=== PATIENT | female | born 1950 | race Caucasian/White ===

== ENCOUNTER 2017-11-06 14:00 | Outpatient (RCR) | payer MEDICARE, OTHER, SELFPAY | END 2017-11-06 14:01 | disposition home or self-care (01) | LOC: OT 14:00 | PROVIDERS: Visit Provider Orthopaedic Surgery Adult Reconstructive Orthopaedic Surgery | DX: S52.502A Unspecified fracture of the lower end of left radius, initial encounter for closed fracture (principal); M79.642 Pain in left hand | CPT/HCPCS: 97110; 97140; 97166 ==

== ENCOUNTER → 2018-04-14 08:48 | Outpatient (POV) | payer MEDICARE, OTHER, SELFPAY | PROVIDERS: Visit Provider Dermatology | DX: Z00.00 Encounter for general adult medical examination without abnormal findings (principal) ==

== ENCOUNTER → 2020-10-17 10:37 | Outpatient (POV) | payer MEDICARE, OTHER, SELFPAY | PROVIDERS: Visit Provider Dermatology | DX: Z00.00 Encounter for general adult medical examination without abnormal findings (principal) ==

== ENCOUNTER 2024-02-17 10:41 | Emergency (ER) | payer MEDICARE, OTHER, SELFPAY ==
[2024-02-17 11:04] VITALS: BP 161/57; PULSE 72; RESP 18; TEMP 36.6; O2SAT 98; BMI 30.5
[2024-02-17 11:14] VITALS: BP 126/63
--- NOTE | 2024-02-17 11:14 | EXP.UTC ---
Discharge Plan Disposition Patient Disposition: Home, Self-Care Prescriptions Prescriptions: New nitrofurantoin monohyd/m-cryst [Macrobid] 100 mg capsule 100 mg PO BID 5 Days Qty: 10 0RF Rx Instructions: must administer with a meal/food No Action atorvastatin 10 MG tablet 10 mg PO DAILY levothyroxine [Synthroid] 100 MCG tablet 0.125 mcg PO DAILY propranolol-hydrochlorothiazid 1 EACH tablet 1 ea PO DAILY hydrocodone-acetaminophen 1 TAB tablet 1 each PO Q6H PRN (Reason: Moderate To Severe Pain) Qty: 6 0RF Rx Instructions: will cause drowsiness metformin 500 mg Tablet 500 mg PO DAILY hydrochlorothiazide 25 mg Tablet 25 mg PO DAILY spironolactone 50 mg Tablet 50 mg PO BID Referrals Follow up/Referrals: Sosa Hogue [Primary Care Provider] - See instructions Activity Restrictions/Add. Instructions Additional Instructions/Restrictions: Call your family doctor to establish care for this visit to the emergency department and schedule follow-up within 48 hours to ensure improvement. If you have any worsening of your condition or any other concerning signs or symptoms, return to the emergency department or your primary care doctor for further evaluation. Clinical Impressions Clinical Impression: Cystitis, Lightheadedness Print Language Print Language: Georgian Discharge ED Provider: Lane Heath [facility] HPI General Chief complaint: Recheck/Abnormal Lab/Rx Stated complaint: blood pressure 127/44 Mode of Arrival: Ambulatory Source of Information: Patient Time Seen by Provider: 02/17/24 11:14 Description of Symptoms (Recalled from Triage Doc. by RN): STATES BLOOD PRESSURE WAS 127/44 AT HOME, SHE FEELS LIGHTHEADED, OFF FEELING , STARTING TO GET BOO STATES BP IS USUALLY 120S/60S IN THE AM TOOK ALL MEDS THIS MORNING THEN STARTING FEELING BAD HEENT Symptoms (Recalled from RN notes): Yes Resp Symptoms (Recalled from RN notes): No Skin Symptoms (Recalled from RN notes): No MS Symptoms (Recalled from RN notes): No Functional Status (Recalled from RN notes): WNL History of Present Illness Provider Complaint: Patient states that she woke up this morning dizzy feeling and feeling off States that she took all her medication including her BP medications and started feeling dizzy and off balanced States that she checked her BP and it was 127/44 and felt like she was trying to get a headache, States that she has continued to feel off balanced and swimmy headed and just doesnt feel right so she called her PCP and they told her to come in Denies vision changes Related Data Home Medications ?Medication ?Instructions ?Recorded ?Confirmed atorvastatin 10 mg tablet 10 mg PO DAILY Hypertension 08/11/17 02/17/24 levothyroxine 100 mcg tablet 0.125 mcg PO DAILY THYROID 08/11/17 02/17/24 (Synthroid) propranolol 40 1 ea PO DAILY Hypertension 08/11/17 02/17/24 mg-hydrochlorothiazide 25 mg tablet hydrochlorothiazide 25 mg tablet 25 mg PO DAILY 02/17/24 02/17/24 metformin 500 mg tablet 500 mg PO DAILY 02/17/24 02/17/24 spironolactone 50 mg tablet 50 mg PO BID 02/17/24 02/17/24 Previous Rx's ?Medication ?Instructions ?Recorded hydrocodone 5 mg-acetaminophen 325 1 each PO Q6H PRN Moderate To 08/11/17 mg tablet Severe Pain #6 tabs nitrofurantoin 100 mg PO BID 5 days #10 caps 02/17/24 monohydrate/macrocrystals 100 mg capsule (Macrobid) Allergies Allergy/AdvReac Type Severity Reaction Status Date / Time naproxen Allergy Hypertensio Verified 02/17/24 11:40 n meloxicam AdvReac Other Verified 02/17/24 11:40 Worker's Comp Is this a Worker's Comp case?: No [facility] Disclaimer: The information contained in this section may have been updated after the patient was seen, as this information can be updated by other users. Medical History (Updated 02/17/24 @ 13:[address] MD) Tubal ligation evaluation Thyroid disease Diabetes Stroke Asthma Hyperlipemia Hypertension Surgical History (Updated 02/17/24 @ 11:08 by Arabella Stevens RN) Hx laparoscopic cholecystectomy Social History (Updated 02/17/24 @ 13:[address] MD) Smoking Status: Never smoker alcohol intake: never current occupational status: retired ROS Obtained: Yes All systems reviewed & no additional complaints except as documented and Yes Systems reviewed as appropriate & no additional complaints except as documented Constitutional Constitutional: Reports system reviewed and no additional complaints, except as documented, Reports as per HPI, Reports headache(s) (feels achy like she is going to get a headache just started) and Reports weakness Eyes Eyes: Reports system reviewed and no additional complaints, except as documented and Reports as per HPI ENT Ears, Nose, Mouth, and Throat: Reports system reviewed and no additional complaints, except as documented, Reports as per HPI, Reports disequilibrium, Reports dizziness and Reports headache(s) (feels achy like she is going to get a headache just started) Cardiovascular Cardiovascular: Reports system reviewed and no additional complaints, except as documented, Reports as per HPI, Denies chest pain, Reports lightheadedness and Denies syncope Respiratory Respiratory: Reports system reviewed and no additional complaints, except as documented and Reports as per HPI Gastrointestinal Gastrointestingal: Reports system reviewed and no additional complaints, except as documented and as per HPI Genitourinary Female Genitourinary: Reports system reviewed and no additional complaints, except as documented and Reports as per HPI Musculoskeletal Musculoskeletal: Reports system reviewed and no additional complaints, except as documented and Reports as per HPI Neurologic Neurologic: Reports system reviewed and no additional complaints, except as documented, Reports as per HPI, Denies abnormal speech, Denies behavioral changes, Denies confusion, Reports disequilibrium, Reports dizziness, Reports headache(s) (feels achy like she is going to get a headache just started), Denies syncope, Reports weakness and Reports other (reports feels foggy headed and feels off and off balance) Physical Exam General General appearance: alert and in no apparent distress Head Head exam: atraumatic and normocephalic Respiratory Respiratory exam: Present normal lung sounds bilaterally; Absent respiratory distress Cardiovascular Cardiovascular exam: Present regular rate, normal rhythm and normal heart sounds Neurological Exam Neurological exam: Present alert and oriented X3 Medical Decision Making Medical Records Screening: Per USPSTF and CDC recommendations, given the prevalence of disease in our region, it is our hospital?s policy to screen for HIV and viral Hepatitis for all patients aged 18 and over and those with ongoing risk factors. Kaushal Inquiry Pt receiving controlled substance: No Kaushal was queried for this patient: No Vital Signs: 02/17/24 11:04 Temperature 97.9 F Temperature Source Oral Pulse Rate [Left Brachial] 72 Respiratory Rate 18 Blood Pressure [Left Arm] 161/57 H Blood Pressure Mean [Left Arm] 91 02 Sat by Pulse Oximetry 98 Lab Data 02/17/24 11:15 02/17/24 11:15 Medical Decision Narrative: Patient almost fell several times walking to room, reports feels off balanced and foggy headed reports just dont feel right discussed with patient and due to hx and current complaints recommended transfer to the ED for further work up and evaluation and she agreed Called ED and patient was moved to the ED
[2024-02-17 11:18] LABS: POC Glucose,Bedside 101 (70-110)
[2024-02-17 11:27] VITALS: BP 156/68; PULSE 72; RESP 18; O2SAT 100; BMI 29.8
--- NOTE | 2024-02-17 11:31 | ECG_ITS ---
APPROVED REPORT Exam: Resting ECG HR:68 bpm ECG Measurements Heart Rate 68 AXES WV 205 P 68 QRSd 92 QRS 27 QT 375 T 57 QTc 393 Conclusion Sinus rhythm Previous septal infarct Electronically signed by : APOLINAR JERONIMO, 02/17/2024 14:15:09
--- NOTE | 2024-02-17 11:50 | HMH.EDGENADL ---
Discharge Plan Prescriptions Prescriptions: New nitrofurantoin monohyd/m-cryst [Macrobid] 100 mg capsule 100 mg PO BID 5 Days Qty: 10 0RF Rx Instructions: must administer with a meal/food No Action atorvastatin 10 MG tablet 10 mg PO DAILY levothyroxine [Synthroid] 100 MCG tablet 0.125 mcg PO DAILY propranolol-hydrochlorothiazid 1 EACH tablet 1 ea PO DAILY hydrocodone-acetaminophen 1 TAB tablet 1 each PO Q6H PRN (Reason: Moderate To Severe Pain) Qty: 6 0RF Rx Instructions: will cause drowsiness metformin 500 mg Tablet 500 mg PO DAILY hydrochlorothiazide 25 mg Tablet 25 mg PO DAILY spironolactone 50 mg Tablet 50 mg PO BID Referrals Follow up/Referrals: Sosa Hogue [Primary Care Provider] - See instructions Activity Restrictions/Add. Instructions Additional Instructions/Restrictions: Call your family doctor to establish care for this visit to the emergency department and schedule follow-up within 48 hours to ensure improvement. If you have any worsening of your condition or any other concerning signs or symptoms, return to the emergency department or your primary care doctor for further evaluation. Clinical Impressions Clinical Impression: Cystitis, Lightheadedness Print Language Print Language: Indonesian Discharge ED Provider: Lane Heath General Adult HPI General Chief complaint: Recheck/Abnormal Lab/Rx Stated complaint: blood pressure 127/44 Time Seen by Provider: 02/17/24 11:14 Mode of Arrival: Wheelchair Source of Information: Patient Limitations: No Limitations Description of Symptoms (Recalled from ER Triage Doc. by RN): pt states she woke up around 730 and felt lightheaded. She took her BP around 0900 and it was 127/44. Pt is concerned because her BP has never been that low. pt states she now feels like she has head fog. pt states the lightheadedness is worse with standing and movement. NIH 0. A&O X4. GCS 15 pt has a hx of TIA in 2002 (no deficits), HTN, DM and thyroid disease. History of Present Illness HPI narrative: Please note that above description of symptoms, in this electronic medical record under categorization of recalled from ER triage doctor by RN are reflective of an initial nursing assessment, however, is not reflective of my full history and physical exam that was personally taken and clarified. Consequentially, this preceding description of symptoms, which may include the patient's categorized chief complaint in the EMR, do not reflect my personal clinical impression, and the ultimate description of history of present illness and patient stated complaints should be deferred to this section of the note. Unless stated otherwise or congruent with this section of the note, additional signs, symptoms, or incongruence should be interpreted as inaccurate with my clinical impression. Related Data Home Medications ?Medication ?Instructions ?Recorded ?Confirmed atorvastatin 10 mg tablet 10 mg PO DAILY Hypertension 08/11/17 02/17/24 levothyroxine 100 mcg tablet 0.125 mcg PO DAILY THYROID 08/11/17 02/17/24 (Synthroid) propranolol 40 1 ea PO DAILY Hypertension 08/11/17 02/17/24 mg-hydrochlorothiazide 25 mg tablet hydrochlorothiazide 25 mg tablet 25 mg PO DAILY 02/17/24 02/17/24 metformin 500 mg tablet 500 mg PO DAILY 02/17/24 02/17/24 spironolactone 50 mg tablet 50 mg PO BID 02/17/24 02/17/24 Previous Rx's ?Medication ?Instructions ?Recorded hydrocodone 5 mg-acetaminophen 325 1 each PO Q6H PRN Moderate To 08/11/17 mg tablet Severe Pain #6 tabs nitrofurantoin 100 mg PO BID 5 days #10 caps 02/17/24 monohydrate/macrocrystals 100 mg capsule (Macrobid) Allergies Allergy/AdvReac Type Severity Reaction Status Date / Time naproxen Allergy Hypertensio Verified 02/17/24 11:40 n meloxicam AdvReac Other Verified 02/17/24 11:40 [facility] Disclaimer: The information contained in this section may have been updated after the patient was seen, as this information can be updated by other users. Medical History (Updated 02/17/24 @ 13:[address] MD) Tubal ligation evaluation Thyroid disease Diabetes Stroke Asthma Hyperlipemia Hypertension Surgical History (Updated 02/17/24 @ 11:08 by Arabella Stevens RN) Hx laparoscopic cholecystectomy Social History Smoking Status: Never smoker alcohol intake: never current occupational status: retired ROS Obtained: Yes All systems reviewed & no additional complaints except as documented Physical Exam General General appearance: alert and in no apparent distress Head Head exam: atraumatic and normocephalic Eye Eye exam: Present normal appearance, PERRL and EOMI Neck Neck exam: Present normal inspection, full ROM and trachea midline Respiratory Respiratory exam: Absent respiratory distress, wheezes, stridor, accessory muscle use or prolonged expiratory phase Cardiovascular Cardiovascular exam: Present other (Pulses equal symmetric in upper and lower extremities) Abdominal Exam Abdominal exam: Present soft; Absent distention, tenderness or pulsatile mass Extremities Exam Extremities exam: Absent edema Neurological Exam Neurological exam: Present alert, oriented X3 and CN II-XII intact; Absent motor sensory deficit Skin Skin exam: Present warm and dry; Absent diaphoresis or erythema Medical Decision Making Medical Records Medical records reviewed: Yes I reviewed the patient's medical records. Screening: Per USPSTF and CDC recommendations, given the prevalence of disease in our region, it is our hospital?s policy to screen for HIV and viral Hepatitis for all patients aged 18 and over and those with ongoing risk factors. Kaushal Inquiry Pt receiving controlled substance: No Kaushal was queried for this patient: No Vital Signs: 02/17/24 11:04 02/17/24 11:14 02/17/24 11:27 Temperature 97.9 F Temperature Source Oral Pulse Rate [Left Brachial] 72 72 Respiratory Rate 18 18 Blood Pressure [Left Arm] 161/57 H 126/63 156/68 H Blood Pressure Mean [Left Arm] 91 84 97 Blood Pressure Source [Left Arm] Automatic Cuff Blood Pressure Position [Left Arm] Sitting 02 Sat by Pulse Oximetry 98 100 Oxygen Delivery Method Room Air Lab Data Lab Results 02/17/24 11:10: POC Glucose 101 02/17/24 11:15: WBC 7.5, RBC 4.10 L, Hgb 11.4 L, Hct 34.2 L, MCV 83.5, MCH 27.8, MCHC 33.3, RDW 13.9, Plt Count 298, MPV 7.3 L, Neut % (Auto) 56.8, Lymph % (Auto) 34.1, Mora % (Auto) 4.5, Eos % (Auto) 3.4, Baso % (Auto) 1.2, Neut # (Auto) 4.3, Lymph # (Auto) 2.6, Mora # (Auto) 0.3, Eos # (Auto) 0.3, Baso # (Auto) 0.1, PT 10.1, INR 0.89 L, Sodium 142, Potassium 4.4, Chloride 106, Carbon Dioxide 30, Anion Gap 10.4, BUN 24 H, Creatinine 1.10 H, Estimated Creat Clear 52, Estimated GFR 48 L, Est GFR ( Amer) 59, Glucose 99, Calcium 9.5, Magnesium 1.8, Total Bilirubin 0.5, AST 20, ALT 16, Alkaline Phosphatase 81, Troponin I < 0.01, NT-Pro-B Natriuret Pep 70.2, Total Protein 7.2, Albumin 4.3, Globulin 2.9, Albumin/Globulin Ratio 1.5, Thyroxine (T4) 13.0 H 02/17/24 12:24: Urine Color Yellow, Urine Appearance Clear, Urine pH 7.0, Ur Specific [place] 1.010, Urine Protein Negative, Urine Glucose (UA) Negative, Urine Ketones Negative, Urine Blood Negative, Urine Nitrate Negative, Urine Bilirubin Negative, Urine Urobilinogen 0.2, Ur Leukocyte Esterase 1+ A 02/17/24 11:15 02/17/24 11:15 Orders (Tests/Meds): ORDERS Category Date Time Status CXR --portable [XR chest portable] Stat Exams 02/17/24 11:54 Taken Complete Blood Count Auto Diff Stat Lab 02/17/24 11:15 Completed Comprehensive Metabolic Panel Stat Lab 02/17/24 11:15 Completed HIV (1&2) Antibody Rapid Stat Lab 02/17/24 11:15 Received Hep C Ab with Reflex to RNA Stat Lab 02/17/24 11:15 Received Magnesium Stat Lab 02/17/24 11:15 Completed NT Pro Brain Natriuretic Pep. Stat Lab 02/17/24 11:15 Completed POC Glucose,Bedside Routine Lab 02/17/24 11:10 Completed PT INR [Prothrombin Time INR] Stat Lab 02/17/24 11:15 Completed T4 (Thyroxine) Stat Lab 02/17/24 11:15 Completed Troponin I Q3H Lab 02/17/24 15:00 Ordered Troponin I Q3H Lab 02/17/24 18:00 Ordered Troponin I Stat Lab 02/17/24 11:15 Completed Urinalysis and Microscopic Stat Lab 02/17/24 12:24 Results Urine Culture Stat Micro 02/17/24 12:24 Received Medical Decision Narrative: 73-year-old female history of hypertension, hypothyroidism, hyperlipidemia presenting with complaint of head feeling dizzy, patient states that she woke up today, 02/16, initially felt well. Sat down to eat breakfast and states that she started feeling unwell at that time. Describes unwell as feeling like my head is a bobble head. Denies overt dizziness, lightheadedness, syncope, chest pain, shortness of breath, palpitations, nausea, vomiting, or any other neurologic deficits. Never had anything like this in the past. says that she has been walking per normal, has not been confused, otherwise acting like herself. Patient states that her blood pressure was running low compared to what she is used to, so came in for further evaluation. History was obtained via conversation with patient and . On arrival, patient hemodynamically stable, alert, oriented x4, appropriate, GCS 15, moving all extremities spontaneously, pupils equal and reactive to light. Full physical exam performed and significant for neurologically intact, NIHSS 0. Cranial nerve, cerebellar, motor and sensory exams normal. Cardiac exam without murmurs gallops or rubs, normal S1-S2. No evidence of JVD. Pulses equal and symmetric in upper and lower extremities. Ambulation test normal without issue. Unremarkable exam overall. Differential includes dehydration, metabolic abnormality, endocrinologic abnormality, hypertension, hypotension, UTI, less likely ACS, OR, vascular abnormality, among others. Patient placed on continuous cardiac monitoring and continuous pulse ox with initial blood pressure 161/57, heart rate 72, saturation 97% on room air. Independent interpretation of EKG shows sinus rhythm no ST or T wave changes concerning for acute ischemia. HI 205, QRS 92, QTc 393. Patient was given po challenge for symptomatic management and correction of underlying abnormalities. Workup independently interpreted and significant for nonactionable CBC with stable hemoglobin. Mild DAVID with creatinine 1.1 and BUN 24, otherwise nonactionable chemistry, negative troponin and BNP. Thyroid studies normal, urinalysis with leukocyte esterase.. On independent interpretation of imaging, no acute cardiopulmonary space disease. See radiology read for full review of final results. Nexus/[place] head/heart/[id number]/Wells/PERC/Age adjusted/YEARS/MELD. On reevaluation, patient states she is not having any symptoms, currently feeling well and ready to go. Given patient presentation, workup, history, this most likely represents mild dehydration. Because patient at baseline without signs or symptoms of clinical decompensation, deemed appropriate for discharge. Results were relayed to patient who voiced understanding and were agreeable to outpatient management and follow up. I discussed my clinical impression with patient and answered all questions. At this time, the evidence for any other entities in the differential is insufficient to warrant any further testing or ED observation. This was explained as well. Advisory was given that persistent or worsening symptoms require further evaluation. I confirmed the understanding of this discussion. Manager Stylist disclaimer Much of this encounter note is an electronic yeast washer spoken language to printed text. Electronic yeast washer of the spoken language may permit errors. Although I have reviewed the note, some errors may still exist. Critical Care Critical Care Time Critical Care Time: No
--- NOTE | 2024-02-17 11:54 | XR_ITS ---
FINAL REPORT CLINICAL HISTORY: lightheadedness, nausea COMPARISON: None FINDINGS: A portable view of the chest was obtained. Cardiac and mediastinal silhouettes are within normal limits. The lungs are clear. There is no pleural effusion or pneumothorax. IMPRESSION: No acute process on this portable exam. Reviewed, Interpreted and Dictated by Holli Aggarwal MD Transcribed by Vikki Freeman Authenticated and [facility]
[2024-02-17 11:58] LABS: Basophils # 0.1 K/mm3 (0-0.2); Basophils % 1.2 % (0.1-2.0); Eosinophils # 0.3 K/mm3 (0.0-0.4); Eosinophils % 3.4 % (0.1-12.0); Hematocrit 34.2 % (37.0-47.0); Hemoglobin 11.4 g/dL (12.2-16.2); Lymphocytes # 2.6 K/mm3 (0.7-4.5); Lymphocytes % 34.1 % (10-50); Mean Corpuscular HGB Conc 33.3 g/dL (31.8-35.4); Mean Corpuscular Hemoglobin 27.8 pg (27.0-31.2); Mean Corpuscular Volume 83.5 fl (81-99); Mean Platelet Volume 7.3 fl (7.4-10.4); Monocytes # 0.3 K/mm3 (0.1-1.0); Monocytes % 4.5 % (1.7-9.3); Neutrophils # 4.3 K/mm3 (1.8-7.8); Neutrophils % 56.8 % (37.0-80.0); Platelet Count 298 K/mm3 (142-424); Red Cell Distribution Width 13.9 % (11.5-17.5); White Blood Count 7.5 K/mm3 (4.8-10.8)
[2024-02-17 12:03] LABS: Alanine Aminotransferase 16 U/L (12-78); Albumin Level 4.3 g/dl (3.5-5.0); Albumin/Globulin Ratio 1.5 (1.1-1.8); Alkaline Phosphatase 81 U/L (38-126); Anion Gap 10.4 mEq/L (5-15); Aspartate Amino Transferase 20 U/L (14-36); Bilirubin,Total 0.5 mg/dl (0.2-1.3); Blood Urea Nitrogen 24 mg/dl (7-17); Calcium 9.5 mg/dl (8.4-10.2); Carbon Dioxide 30 mmol/L (22.0-30.0); Chloride 106 mmol/L (98-107); Creatinine Clearance Estimated 52 mL/min (50-200); Estimated Glomerular Filt Rate 48 ml/min (>60); GFR (African American) 59 ML/MIN (>60); Globulin 2.9 g/dL (1.3-3.2); Glucose 99 mg/dl (74-100); Magnesium 1.8 mg/dl (1.6-2.3); Potassium 4.4 mmoL/L (3.5-5.1); Sodium 142 mmol/L (136-145); Total Protein,Serum 7.2 g/dl (6.3-8.2)
[2024-02-17 12:05] LABS: INR 0.89 (0.9-1.1); Prothrombin Time 10.1 seconds (10.1-12.5)
[2024-02-17 12:14] LABS: NT Pro Brain Natriuretic Pep. 70.2 pg/mL (0-450)
[2024-02-17 12:16] LABS: Troponin I < 0.01 ng/ml (0.00-0.034)
--- NOTE | 2024-02-17 12:26 | PC.NURSE ---
pt ambulated to the bathroom without any difficulty. pt is trying to give a urine sample at this time.
[2024-02-17 12:34] LABS: Microscopic, Urine URINE MICROSCOPIC (MICROSCOPIC)
[2024-02-17 12:40] LABS: Appearance,Urine CLEAR (Clear); Bilirubin,Urine Negative (Negative); Blood, Urine Negative (Negative); Color,Urine YELLOW (Yellow); Glucose,Urine (UA) Negative (Negative); Ketones,Urine Negative (Negative); Leukocyte Esterase,Urine 1+ (Negative); Nitrate,Urine Negative (Negative); Protein,Urine Negative (Negative); Urobilinogen,Urine 0.2 EU/dl (0.2)
--- NOTE | 2024-02-17 13:21 | PC.NURSE ---
round on patient, got the patient a warm blanket and a cup of ice.
[2024-02-17 13:48] VITALS: BP 136/63; PULSE 60; RESP 16; TEMP 36.4; O2SAT 98
[2024-02-17 13:49] LABS: HIV (1&2) Antibody Rapid NONREACTIVE (NONREACTIVE)
[2024-02-17 13:52] LABS: Bacteria,Urine Trace /lpf; Squamous Epithelial Cell,Urine Occasional #/hpf (0-5)
[2024-02-18 09:16] LABS: HCV Ab Non Reactive (Non Reactive)
== END 2024-02-17 13:56 | disposition home or self-care (01) ==
LOC: UTC 11:06 → ER 11:16
PROVIDERS: Emergency Provider Emergency Medicine; PCP Family Medicine
DX: N30.90 Cystitis, unspecified without hematuria (principal); R42 Dizziness and giddiness; R51.9 Headache, unspecified; R41.89 Other symptoms and signs involving cognitive functions and awareness
CPT/HCPCS: 71045; 80053; 81001; 82962; 83735; 83880; 84436; 84484; 85025; 85610; 86803; 87086; 87389; 93005; 99284